=== PATIENT | female | born 1985 | race Caucasian/White ===

== ENCOUNTER 2021-02-28 07:06 | Inpatient (IN) | payer OTHER ==
[~2021-02-28] VITALS: Ht 167.6 cm; Wt 113.4 kg
[~2021-02-28 07:06] MED LIST: SULFACETAMIDE S15 ML EYEBOTH
[2021-02-28 08:28] LABS: HCT 31.6 % (37.0-47.0); HGB 10.3 g/dl (12.5-16.0); MCH 30.3 pg (25.0-31.0); MCHC 32.6 g/dL (32.0-36.0); MCV 92.9 fL (78.0-100.0); MPV 12.1 fL (6.0-9.5); RBC 3.4 M/uL (4.20-5.40); RDW 13.8 % (11.5-14.0); WBC 6.3 K/uL (4.0-10.5)
[2021-02-28 10:29] LABS: BILIRUBIN NEGATIVE (NEGATIVE); BLOOD NEGATIVE Ery/uL (NEGATIVE); CLARITY CLEAR (CLEAR); COLOR YELLOW (YELLOW); GLUCOSE (U) NORMAL (NORMAL); LEUKOCYTES NEGATIVE Leu/uL (NEGATIVE); NITRITE NEGATIVE (NEGATIVE); PROTEIN NEGATIVE (NEGATIVE); SPECIFIC GRAVITY 1.025 (1.001-1.030)
[2021-02-28 17:10] LABS: AMPHETAMINES NEGATIVE (NEGATIVE); BARBITURATES NEGATIVE (NEGATIVE); ECSTASY (MDMA) NEGATIVE (NEGATIVE); MARIJUANA (THC) NEGATIVE (NEGATIVE); METHADONE NEGATIVE (NEGATIVE); OPIATES NEGATIVE (NEGATIVE); OXYCODONE NEGATIVE (NEGATIVE)
[2021-03-01 05:58] LABS: HGB 9.1 g/dl (12.5-16.0); MCH 30.2 pg (25.0-31.0); MCHC 31.4 g/dL (32.0-36.0); MCV 96.3 fL (78.0-100.0); MPV 11.9 fL (6.0-9.5); RBC 3.01 M/uL (4.20-5.40); RDW 13.8 % (11.5-14.0)
[2021-03-02] MEDS ORDERED: FEOSOL325 MG PO (03:39)
[2021-03-02] MEDS ORDERED: IBUPROFEN800 MG PO (03:39)
[2021-03-02] MEDS ORDERED: MLYLANTA/MAALOX30 ML PO (03:39)
[2021-03-02] MEDS ORDERED: ANUCORT-HC25 MG PR (03:39)
[2021-03-02] MEDS ORDERED: PRENATAL FORMU1 EACH PO (03:39)
[2021-03-02] MEDS ORDERED: COLACE100 MG PO (03:39)
[2021-03-02] MEDS ORDERED: LANOLIN HYDROUS TOP (03:39)
[2021-03-02 06:14] LABS: HCT 30.1 % (37.0-47.0); HGB 9.4 g/dl (12.5-16.0); MCH 30.1 pg (25.0-31.0); MCHC 31.2 g/dL (32.0-36.0); MCV 96.5 fL (78.0-100.0); MPV 12.2 fL (6.0-9.5); RBC 3.12 M/uL (4.20-5.40); WBC 7.5 K/uL (4.0-10.5)
== END 2021-03-02 11:00 | disposition home or self-care (01) | DRG 787 ==
LOC: FOB 07:06
PROVIDERS: Specialist; ADMIT Obstetrics & Gynecology
PROC: 10D00Z1 Extraction of Products of Conception, Low, Open Approach (ICD-10-PCS; principal; 2021-02-28 09:00)
DX: O32.2XX0 Maternal care for transverse and oblique lie, not applicable or unspecified (principal); D62 Acute posthemorrhagic anemia; O24.429 Gestational diabetes mellitus in childbirth, unspecified control; Z3A.37 37 weeks gestation of pregnancy; Z37.0 Single live birth; O99.02 Anemia complicating childbirth; Z20.822 Contact with and (suspected) exposure to COVID-19
CPT/HCPCS: 36415; 80305; 81003; 82947; 86850; 86900; 86901; 94010; J0456; J0690; J1200; J1885; J2274; J2370; J2405; J3010; J7050; J7120

== ENCOUNTER 2021-03-28 15:14 | Emergency (ER) | payer OTHER ==
[~2021-03-28 15:14] MED LIST changes: +ANUCORT-HC25 MG PR; +COLACE100 MG PO; +FEOSOL325 MG PO; +IBUPROFEN800 MG PO; +LANOLIN HYDROUS TOP; +MLYLANTA/MAALOX30 ML PO; +PRENATAL FORMU1 EACH PO
[2021-03-28 20:53] LABS: BASOPHIL 0.4 % (0-2); EOSINOPHIL 0 % (0-5); HCT 38.7 % (37.0-47.0); HGB 12.5 g/dl (12.5-16.0); LYMPHOCYTE 29.6 % (15-48); MCH 29.8 pg (25.0-31.0); MCHC 32.3 g/dL (32.0-36.0); MCV 92.1 fL (78.0-100.0); MONOCYTE 4.4 % (0-12); MPV 12.6 fL (6.0-9.5); NEUTROPHIL 65.2 % (41-80); NRBC 0; RDW 13.4 % (11.5-14.0)
[2021-03-28 21:03] LABS: ALBUMIN 3.6 g/dL (3.4-5.0); BILIRUBIN - TOTAL 0.3 mg/dL (0.2-1.0); BUN/CREAT RATIO (CALC) 21.9 RATIO; CREATININE 0.64 mg/dL (0.51-0.95); GLOBULIN (CALCULATION) 3.6 g/dL; POTASSIUM 3.8 mmol/L (3.5-5.1); TOTAL PROTEIN 7.2 g/dL (6.4-8.2)
[2021-03-28 21:07] LABS: WBC 2.7 K/uL (4.0-10.5)
[2021-03-28 21:20] LABS: PLT 76 K/uL (150-400)
[2021-03-28] MEDS ORDERED: ONDANSETRON ODT4 MG SL (21:50)
[2021-03-28 22:05] LABS: BILIRUBIN 1+ mg/dL (NEGATIVE); BLOOD NEGATIVE Ery/uL (NEGATIVE); CLARITY HAZY (CLEAR); COLOR YELLOW (YELLOW); GLUCOSE (U) NORMAL (NORMAL); LEUKOCYTES NEGATIVE Leu/uL (NEGATIVE); NITRITE NEGATIVE (NEGATIVE); PROTEIN NEGATIVE (NEGATIVE); SPECIFIC GRAVITY >=1.030 (1.001-1.030); UROBILINOGEN 0.2 mg/dL (0.2-1.0)
== END 2021-03-28 22:30 | disposition home or self-care (01) ==
LOC: FER 15:14
PROVIDERS: Emergency Medicine Emergency Medical Services
DX: U07.1 COVID-19 (principal); Z98.890 Other specified postprocedural states
CPT/HCPCS: 36415; 71045; 80053; 81003; 85025; J1885; J2405; J7120; U0002

== ENCOUNTER → 2021-10-03 | Day surgery (SDC) | payer OTHER ==
[~2021-10-03] VITALS: Ht 167.6 cm; Wt 83.9 kg
[~2021-10-03] MED LIST changes: +ONDANSETRON ODT4 MG SL; +PERCOCET 5-3251 EACH PO
[2021-10-03 10:34] LABS: HCG (URINE) SCREEN NEGATIVE (NEGATIVE)
[2021-10-03 11:27] LABS: HCT 37.7 % (37.0-47.0); HGB 12.6 g/dl (12.5-16.0); MCHC 33.4 g/dL (32.0-36.0); MCV 92.9 fL (78.0-100.0); MPV 11.4 fL (6.0-9.5); RBC 4.06 M/uL (4.20-5.40); RDW 12.6 % (11.5-14.0); WBC 5.7 K/uL (4.0-10.5)
== END | disposition home or self-care (01) ==
LOC: FAS 10:14
PROVIDERS: Obstetrics & Gynecology
DX: N92.0 Excessive and frequent menstruation with regular cycle (principal); N83.8 Other noninflammatory disorders of ovary, fallopian tube and broad ligament; N73.6 Female pelvic peritoneal adhesions (postinfective)
CPT/HCPCS: 36415; 84703; 86850; 86900; 86901; J1885; J2250; J2405; J2704; J2710; J3010; J7120

== ENCOUNTER 2022-02-22 21:08 | Emergency (ER) | payer OTHER ==
[2022-02-22 21:51] LABS: ALBUMIN 3.5 g/dL (3.4-5.0); BASOPHIL 0.3 % (0-2); BILIRUBIN - TOTAL 0.4 mg/dL (0.2-1.0); BUN/CREAT RATIO (CALC) 18.5 RATIO; CREATININE 0.65 mg/dL (0.51-0.95); EOSINOPHIL 0.2 % (0-5); GLOBULIN (CALCULATION) 2.9 g/dL; HCT 34.6 % (37.0-47.0); HGB 11.5 g/dl (12.5-16.0); LYMPHOCYTE 10.3 % (15-48); MCHC 33.2 g/dL (32.0-36.0); MCV 93.3 fL (78.0-100.0); MONOCYTE 4.3 % (0-12); MPV 11.4 fL (6.0-9.5); NEUTROPHIL 84.6 % (41-80); NRBC 0; PLT 165 K/uL (150-400); POTASSIUM 3.2 mmol/L (3.5-5.1); RBC 3.71 M/uL (4.20-5.40); TOTAL PROTEIN 6.4 g/dL (6.4-8.2)
[2022-02-22 21:56] LABS: INR 1.13 (0.9-1.2); PROTHROMBIN TIME 14.2 SECONDS (11.9-13.9); PTT 23.9 SECONDS (24.9-34.6)
[2022-02-22 23:16] LABS: INFLUENZA A NAA NEGATIVE (NEGATIVE)
[2022-02-22 23:19] LABS: CORONAVIRUS 2019 SARS-COV-2 POSITIVE (NEGATIVE)
[2022-02-22 23:53] LABS: BILIRUBIN NEGATIVE (NEGATIVE); BLOOD NEGATIVE Ery/uL (NEGATIVE); CLARITY CLEAR (CLEAR); COLOR YELLOW (YELLOW); GLUCOSE (U) NORMAL (NORMAL); LEUKOCYTES NEGATIVE Leu/uL (NEGATIVE); NITRITE NEGATIVE (NEGATIVE); PROTEIN NEGATIVE (NEGATIVE); SPECIFIC GRAVITY 1.025 (1.001-1.030); pH 7.5 (5.0-9.0)
[2022-02-23 00:13] LABS: AMORPHOUS PHOSPHATE CRYSTALS TRACE; BACTERIA TRACE; SQUAMOUS EPITHELIAL CELLS RARE; URINARY RBC RARE
[2022-02-23] MEDS ORDERED: MEDROL 4MG DOSEP4 MG PO (00:46)
[2022-02-23] MEDS ORDERED: PAXLOVID CO-PA1 EAC1 PO (00:46)
== END 2022-02-23 00:47 | disposition home or self-care (01) ==
LOC: FER 21:08
PROVIDERS: Emergency Medicine
DX: U07.1 COVID-19 (principal); R07.89 Other chest pain; F17.210 Nicotine dependence, cigarettes, uncomplicated
CPT/HCPCS: 36415; 71045; 80053; 81001; 84484; 85025; 85610; 85730; 93005; J2405; J2930; U0002